=== PATIENT | male | born 1970 | race African-American/Black ===

== ENCOUNTER 2019-10-10 09:00 | Inpatient (IN) | payer OTHER ==
--- NOTE | 2019-10-10 09:14 | BHS.RME ---
Substance Use & Tx History - Substance Use History Alcohol Substance amount: 6-8 cans beer 24 ounce, 1 pint whiskey Frequency of use: Daily Substance route: Oral Date of Last Use: 10/10/19 Cocaine (Crack) Substance amount: 6 bags Frequency of use: Daily Substance route: Smoking Date of Last Use: 10/03/19 Cannabis Substance amount: 2 blunts Frequency of use: Less than 5 times a year Substance route: Smoking Date of Last Use: 05/28/19 - Last Treatment Date of last treatment: None at [facility], never in detox Physical/Psych/Mental Status - Behavior Eye Contact: Normal - Cooperativeness Cooperativeness: Reluctant - Thinking Thought Processes: Tight Thought content: Homicidal ideation - Physical Health Problems Is patient presently having any pain?: No Does patient presently have any injuries (include location): No Does patient currently have a fever: No CIWA Nausea/Vomitin-No Nausea/No Vomiting Muscle Tremors: 1-None Visible, but [place] Anxiety: 0-No Anxiety, at Ease Agitation: 0-Normal Activity Paroxysmal Sweats: No Perspiration Orientation: 0-Oriented Tacttile Disturbances: 0-None Auditory Disturbances: 0-None Visual Disturbances: 0-None Headache: 0-None Present CIWA-Ar Total Score: 1
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
[2019-10-10 10:08] VITALS: BMI 28.3
[2019-10-10] MEDS ORDERED: hydrOXYzine PAMOATE 25 MG CAPSULE (FP) PO PRN (10:22)
[2019-10-10] MEDS ORDERED: MAGNESIUM HYDROX 2400MG/30ML ORAL SUSPENSION 30 ML CUP PO PRN (10:22)
[2019-10-10] MEDS ORDERED: IBUPROFEN 400 MG TABLET (FP) PO PRN (10:22)
[2019-10-10] MEDS ORDERED: chlordiazePOXIDE HCL 25 MG CAPSULE PO PRN (10:22)
[2019-10-10] MEDS ORDERED: ACETAMINOPHEN 325 MG TABLET (FP) PO PRN ×2 (10:22)
[2019-10-10] MEDS ORDERED: MENTHOL/PHENOL 1 EACH UD MM PRN (10:22)
[2019-10-10] MEDS ORDERED: METHOCARBAMOL 500 MG TABLET PO PRN (10:22)
[2019-10-10] MEDS ORDERED: MAG HYDROX/AL HYDROX/SIMETH 30 ML UNIT-DOSE CUP PO PRN (10:22)
[2019-10-10] MEDS ORDERED: MELATONIN 5 MG TABLETS PO PRN (10:22)
[2019-10-10] MEDS ORDERED: MAGNESIUM CITRATE 300 ML BOTTLE PO PRN (10:22)
[2019-10-10] MEDS ORDERED: BISMUTH SUBSALICYLATE 524 MG/30 ML UD PO PRN (10:22)
[2019-10-10] MEDS: chlordiazePOXIDE HCL 25 MG CAPSULE PO SCH ×3 (11:37→22:19)
[2019-10-10] MEDS: NICOTINE 14 MG/24 HOURS TOPICAL PATCH TD SCH (11:39)
[2019-10-10 14:44] LABS: HEMATOCRIT 40.7 % (35.4-49); HEMOGLOBIN 13.2 GM/dL (11.7-16.9); MCH 27.6 pg (25.7-33.7); MCHC 32.5 g/dl (32.0-35.9); MEAN PLT VOLUME 8.8 fl (7.5-11.1); PLATELET COUNT 243 K/MM3 (134-434); RBC 4.79 M/mm3 (4.00-5.60); RDW 15.1 % (11.9-15.9); WHITE BLOOD COUNT 3.3 K/mm3 (4.0-10.0)
[2019-10-10 15:08] LABS: ALBUMIN 4.2 g/dl (3.4-5.0); BILIRUBIN,TOTAL 0.7 mg/dL (0.2-1); BLOOD UREA NITROGEN 10.5 mg/dL (7-18); CALCIUM 8.9 mg/dL (8.5-10.1); CREATININE 0.8 mg/dL (0.55-1.3); POTASSIUM 4.1 mmol/L (3.5-5.1); TOT PROT 7.8 g/dl (6.4-8.2)
[2019-10-10] MEDS: THIAMINE HCL 100 MG TABLET (FP) PO SCH (22:19)
[2019-10-11] MEDS: chlordiazePOXIDE HCL 25 MG CAPSULE PO SCH ×4 (05:52→22:21)
[2019-10-11] MEDS: PRENATAL VITAMINS W/ FOLIC ACID TABLET (FP) PO SCH (10:22)
[2019-10-11] MEDS: NICOTINE 14 MG/24 HOURS TOPICAL PATCH TD SCH (10:23)
--- NOTE | 2019-10-11 10:39 | PN ---
[facility] CIWA - CIWA Score Nausea/Vomitin-No Nausea/No Vomiting Muscle Tremors: 1-None Visible, but [place] Anxiety: 1-Mildly Anxious Agitation: 0-Normal Activity Paroxysmal Sweats: 1-Minimal Palms Moist Orientation: 0-Oriented Tacttile Disturbances: 0-None Auditory Disturbances: 0-None Visual Disturbances: 0-None Headache: 0-None Present CIWA-Ar Total Score: 3 BHS Progress Note (SOAP) Subjective: No complaints Objective: 10/11/19 10:37 Laboratory Last Values WBC 3.3 K/mm3 (4.0-10.0) L 10/10/19 09:45 RBC 4.79 M/mm3 (4.00-5.60) 10/10/19 09:45 Hgb 13.2 GM/dL (11.7-16.9) 10/10/19 09:45 Hct 40.7 % (35.4-49) 10/10/19 09:45 MCV 85.0 fl (80-96) 10/10/19 09:45 MCH 27.6 pg (25.7-33.7) 10/10/19 09:45 MCHC 32.5 g/dl (32.0-35.9) 10/10/19 09:45 RDW 15.1 % (11.9-15.9) 10/10/19 09:45 Plt Count 243 K/MM3 (134-434) 10/10/19 09:45 MPV 8.8 fl (7.5-11.1) 10/10/19 09:45 Sodium 138 mmol/L (136-145) 10/10/19 09:45 Potassium 4.1 mmol/L (3.5-5.1) 10/10/19 09:45 Chloride 106 mmol/L (98-107) 10/10/19 09:45 Carbon Dioxide 25 mmol/L (21-32) 10/10/19 09:45 Anion Gap 7 MMOL/L (8-16) L 10/10/19 09:45 BUN 10.5 mg/dL (7-18) 10/10/19 09:45 Creatinine 0.8 mg/dL (0.55-1.3) 10/10/19 09:45 Est GFR (CKD-EPI)AfAm 124.16 10/10/19 09:45 Est GFR (CKD-EPI)NonAf 107.13 10/10/19 09:45 Random Glucose 88 mg/dL (74-106) 10/10/19 09:45 Calcium 8.9 mg/dL (8.5-10.1) 10/10/19 09:45 Total Bilirubin 0.7 mg/dL (0.2-1) 10/10/19 09:45 AST 26 U/L (15-37) 10/10/19 09:45 ALT 42 U/L (13-61) 10/10/19 09:45 Alkaline Phosphatase 78 U/L (45-117) 10/10/19 09:45 Total Protein 7.8 g/dl (6.4-8.2) 10/10/19 09:45 Albumin 4.2 g/dl (3.4-5.0) 10/10/19 09:45 RPR Titer Nonreactive (NONREACTIVE) 10/10/19 09:45 Vital Signs Temperature 97.0 F L 10/11/19 08:43 Pulse Rate 79 10/11/19 08:43 Respiratory Rate 18 10/11/19 08:43 Blood Pressure 112/66 10/11/19 08:43 O2 Sat by Pulse Oximetry (%) PE Gnl: WDWN, in bed Mental status: easily aroused, oriented Motor: moves limbs symmetrically Assessment: 10/11/19 10:38 1. Alcohol use disorder 10/11/19 10:38 2. Nicotine dependence Plan: 1. Librium detox 2. Nicotine patch
[2019-10-11] MEDS ORDERED: FLU VACCINE QUAD 60 MCG/0.5 ML (MDV 19-20) IM ONE (12:00)
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
[2019-10-11] MEDS: THIAMINE HCL 100 MG TABLET (FP) PO SCH (22:21)
[2019-10-11] MEDS: traZODone HCL 50 MG TABLET (FP) PO SCH (22:21)
[2019-10-12] MEDS: chlordiazePOXIDE HCL 25 MG CAPSULE PO SCH ×4 (05:24→22:12)
[2019-10-12] MEDS: PRENATAL VITAMINS W/ FOLIC ACID TABLET (FP) PO SCH (10:29)
[2019-10-12] MEDS: NICOTINE 14 MG/24 HOURS TOPICAL PATCH TD SCH (10:29)
--- NOTE | 2019-10-12 10:45 | PN ---
S CIWA - CIWA Score Nausea/Vomitin-No Nausea/No Vomiting Muscle Tremors: None Anxiety: 3 Agitation: 2 Paroxysmal Sweats: 3 Orientation: 0-Oriented Tacttile Disturbances: 0-None Auditory Disturbances: 0-None Visual Disturbances: 0-None Headache: 2-Mild CIWA-Ar Total Score: 10 S Progress Note (SOAP) Subjective: c/o anxiety, headache, sweats, and irritability. Objective: Vital Signs 10/12/19 10/12/19 10/12/19 03:30 05:13 06:30 Temperature 97.5 F L Pulse Rate 61 Respiratory 18 18 18 Rate Blood Pressure 85/52 L 10/12/19 08:59 Temperature 96.1 F L Pulse Rate 82 Respiratory 19 Rate Blood Pressure 120/84 Laboratory Last Values WBC 3.3 K/mm3 (4.0-10.0) L 10/10/19 09:45 RBC 4.79 M/mm3 (4.00-5.60) 10/10/19 09:45 Hgb 13.2 GM/dL (11.7-16.9) 10/10/19 09:45 Hct 40.7 % (35.4-49) 10/10/19 09:45 MCV 85.0 fl (80-96) 10/10/19 09:45 MCH 27.6 pg (25.7-33.7) 10/10/19 09:45 MCHC 32.5 g/dl (32.0-35.9) 10/10/19 09:45 RDW 15.1 % (11.9-15.9) 10/10/19 09:45 Plt Count 243 K/MM3 (134-434) 10/10/19 09:45 MPV 8.8 fl (7.5-11.1) 10/10/19 09:45 Sodium 138 mmol/L (136-145) 10/10/19 09:45 Potassium 4.1 mmol/L (3.5-5.1) 10/10/19 09:45 Chloride 106 mmol/L (98-107) 10/10/19 09:45 Carbon Dioxide 25 mmol/L (21-32) 10/10/19 09:45 Anion Gap 7 MMOL/L (8-16) L 10/10/19 09:45 BUN 10.5 mg/dL (7-18) 10/10/19 09:45 Creatinine 0.8 mg/dL (0.55-1.3) 10/10/19 09:45 Est GFR (CKD-EPI)AfAm 124.16 10/10/19 09:45 Est GFR (CKD-EPI)NonAf 107.13 10/10/19 09:45 Random Glucose 88 mg/dL (74-106) 10/10/19 09:45 Calcium 8.9 mg/dL (8.5-10.1) 10/10/19 09:45 Total Bilirubin 0.7 mg/dL (0.2-1) 10/10/19 09:45 AST 26 U/L (15-37) 10/10/19 09:45 ALT 42 U/L (13-61) 10/10/19 09:45 Alkaline Phosphatase 78 U/L (45-117) 10/10/19 09:45 Total Protein 7.8 g/dl (6.4-8.2) 10/10/19 09:45 Albumin 4.2 g/dl (3.4-5.0) 10/10/19 09:45 RPR Titer Nonreactive (NONREACTIVE) 10/10/19 09:45 Labs noted. Assessment: 10/12/19 10:44 AOX3, in no acute respiratory distress. Full ROM, ambulating in the unit. Withdrawal symptoms. Plan: continue detox.
[2019-10-12] MEDS: traZODone HCL 50 MG TABLET (FP) PO SCH (22:12)
[2019-10-12] MEDS: THIAMINE HCL 100 MG TABLET (FP) PO SCH (22:12)
[2019-10-13] MEDS ORDERED: chlordiazePOXIDE HCL 10 MG CAPSULE PO PRN
[2019-10-13] MEDS: chlordiazePOXIDE HCL 10 MG CAPSULE PO SCH ×2 (06:33→09:00)
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
[2019-10-13] MEDS: PRENATAL VITAMINS W/ FOLIC ACID TABLET (FP) PO SCH (09:00)
[2019-10-13] MEDS: NICOTINE 14 MG/24 HOURS TOPICAL PATCH TD SCH (09:00)
[2019-10-13 10:58] VITALS: BP 118/75; PULSE 81; TEMP 97.2
[2019-10-14] MEDS ORDERED: chlordiazePOXIDE HCL 10 MG CAPSULE PO SCH (05:00)
[2019-10-15] MEDS ORDERED: chlordiazePOXIDE HCL 10 MG CAPSULE PO ONE (05:00)
== END 2019-10-13 09:57 | disposition home or self-care (01) | DRG 774 ==
LOC: YASAS 09:00 → Y3N 11:10
PROVIDERS: ADMIT Allergy & Immunology; ATTEND Allergy & Immunology
PROC: HZ2ZZZZ Detoxification Services for Substance Abuse Treatment (ICD-10-PCS; principal; 2019-10-10)
DX: F10.230 Alcohol dependence with withdrawal, uncomplicated (principal); F14.20 Cocaine dependence, uncomplicated; F12.10 Cannabis abuse, uncomplicated; F17.210 Nicotine dependence, cigarettes, uncomplicated; B18.2 Chronic viral hepatitis C; G47.00 Insomnia, unspecified
CPT/HCPCS: 36415; 80053; 85027; 86593